=== PATIENT | female | born 1940 | race Caucasian/White ===

== ENCOUNTER → 2016-09-12 | Outpatient (CLI) | payer MEDICARE ==
--- NOTE | 2016-09-12 17:59 | US ---
EXAMINATION TYPE: US carotid duplex BILAT DATE OF EXAM: 09/12/2016 4:31 PM COMPARISON: NONE CLINICAL HISTORY: R09.89 Other specified symptoms and signs involvin. Baseline EXAM MEASUREMENTS: RIGHT: Peak Systolic Velocity (PSV) cm/sec ----- Right CCA: 75.6 ----- Right ICA: 72.1 ----- Right ECA: 168.7 ICA/CCA ratio: 1.0 RIGHT: End Diastole cm/sec ----- Right CCA: 18.8 ----- Right ICA: 21.5 ----- Right ECA: 18.9 LEFT: Peak Systolic Velocity (PSV) cm/sec ----- Left CCA: 85.3 ----- Left ICA: 138.7 ----- Left ECA: 81.7 ICA/CCA ratio: 1.6 LEFT: End Diastole cm/sec ----- Left CCA: 20.4 ----- Left ICA: 40.2 ----- Left ECA: 13.6 VERTEBRALS (direction of flow): Right Vertebral: Antegrade Left Vertebral: Antegrade Elevated right ECA and left proximal ICA. Left proximal ICA appears tortuous. No significant stenos is. Plaque seen in right bulb. Slight bilateral wall thickening. IMPRESSION: There is slight elevated velocity in the left internal carotid artery suggestive of 50-7 0% stenosis. There is antegrade flow in the vertebral arteries. Elevated right external carotid arter y velocity corresponds to 70% stenosis. Criteria for Assigning % of Stenosis / Diameter reduction (Estimation based on the indirect measurements of the internal carotid artery velocities (ICA PSV). 1. Normal (no stenosis)=ICA PSV < 125 cm/s: ratio < 2.0: ICA EDV<40 cm/s. 2. Less than 50% stenosis=ICA PSV < 125 cm/s: ratio < 2.0: ICA EDV<40 cm/s. 3. 50 to 69% stenosis=ICA PSV of 125 to 230 cm/s: ration 2.0 ? 4.0: ICA EDV 40-100 cm/s. 4. Greater than 70% stenosis to near occlusion= ICA PSV > 230 cm/s: ratio > 4.0: ICA EDV > 100 cm/s. 5. Near occlusion= ICA PSV velocities may be low or undetectable: variable ratio and ICA EDV. 6. Total occlusion=unable to detect flow.
== END | disposition home or self-care (01) ==
LOC: RADUSWWP 15:44
PROVIDERS: ATTEND Family Medicine
DX: I65.22 Occlusion and stenosis of left carotid artery (principal)
CPT/HCPCS: 93880

== ENCOUNTER → 2019-01-04 | Outpatient (CLI) | payer MEDICARE ==
--- NOTE | 2019-01-05 11:52 | MM ---
Reason for exam: screening (asymptomatic). Last mammogram was performed 2 years and 9 months ago. History: Patient is postmenopausal and is nulliparous. Took hormonal contraceptives for 1 year beginning at age 36. Physical Findings: A clinical breast exam by your physician is recommended on an annual basis and results should be correlated with mammographic findings. MG 3D Screening Mammo W/Cad Bilateral CC and MLO view(s) were taken. Prior study comparison: April 04, 2016, bilateral MG 3d screening mammo w/cad. April 03, 2015, bilateral MG screening mammo w CAD. There are scattered fibroglandular densities. There are benign appearing round calcifications bilaterally, greater in the left breast. There is chronic nodularity bilaterally. There is no discrete abnormality. ASSESSMENT: Benign, BI-RAD 2 RECOMMENDATION: Routine screening mammogram of both breasts in 1 year.
== END | disposition home or self-care (01) ==
LOC: RADMAMWWP 10:37
PROVIDERS: ATTEND Family Medicine
DX: Z12.31 Encounter for screening mammogram for malignant neoplasm of breast (principal)
CPT/HCPCS: 77063; 77067

== ENCOUNTER → 2019-04-27 | Outpatient (CLI) | payer MEDICARE ==
--- NOTE | 2019-04-27 16:06 | US ---
EXAMINATION TYPE: US thyroid st tissue head/neck DATE OF EXAM: 04/27/2019 COMPARISON: NONE CLINICAL HISTORY: E04.1 Nontoxic single thyroid nodule. GLAND SIZE: Right Lobe: 4.4 x 1.2 x 1.3 cm Overall Parenchyma: heterogenous Left Lobe: 4.3 x 1.2 x 1.3 cm Overall Parenchyma: heterogeneous Isthmus Thickness: 0.3 cm NODULES- Innumerable subcentimeter nodules visualized bilaterally. Largest measuring: RIGHT: # of nodules measured on right: 2 1. 0.7 X 0.5 x 0.8 cm hypoechoic mixed nodule at the upper pole with well-defined margins; . This nodule is wider than tall and shows intranodular vascularity. Prior size: No previous 2. 0.9 X 0.6 x 0.9 cm hypoechoic solid nodule at the lower pole with well-defined margins; . This n odule is wider than tall and shows intranodular vascularity. Prior size: No previous LEFT: # of nodules measured on left: 2 1. 0.5 X 0.4 x 0.5 cm hypoechoic mixed nodule at the upper pole with well-defined margins; . This nodule is wider than tall and shows no intranodular vascularity. Prior size: No previous 2. 0.7 X 0.3 x 0.6 cm hypoechoic cystic nodule at the lower pole with well-defined margins; . This nodule is wider than tall and shows no intranodular vascularity. Prior size: No previous ISTHMUS: # of nodules measured in the isthmus: 0 Bilateral neck scanned, no evidence of lymphadenopathy. IMPRESSION: Multinodular goiter. Multiple subcentimeter thyroid nodules. Surveillance ultrasound is r ecommended in 12 months.
== END | disposition home or self-care (01) ==
LOC: RADUSWWP 15:11
PROVIDERS: ATTEND Family Medicine
DX: E04.2 Nontoxic multinodular goiter (principal)
CPT/HCPCS: 76536

== ENCOUNTER → 2020-08-08 | Outpatient (CLI) | payer MEDICARE ==
[2020-08-08 22:53] LABS: Hemoglobin A1C 5.7 % (4.0-6.0)
[2020-08-09 20:12] LABS: Chol/HDL Ratio 3.46; LDL Cholesterol,Calculated 106.2 mg/dL (0.0-131.0); VLDL Calculation 38.8 mg/dL (5.00-40.00)
== END | disposition home or self-care (01) ==
LOC: LABWHC1 08:39
PROVIDERS: ATTEND Orthopaedic Surgery
DX: Z01.812 Encounter for preprocedural laboratory examination (principal); Z01.818 Encounter for other preprocedural examination; E78.2 Mixed hyperlipidemia; I10 Essential (primary) hypertension
CPT/HCPCS: 36415; 80061; 82550; 83036

== ENCOUNTER → 2020-08-08 | Outpatient (CLI) | payer MEDICARE ==
[2020-08-08 10:59] LABS: HCT 39.5 % (34.0-46.0); HGB 13.7 gm/dL (11.4-16.0); MCH 29.9 pg (25.0-35.0); MCHC 34.6 g/dL (31.0-37.0); MCV 86.4 fL (80.0-100.0); Mean Platelet Volume 7.7; Platelet Count 275 k/uL (150-450); RBC 4.57 m/uL (3.80-5.40); RDW 12.9 % (11.5-15.5); WBC 7.3 k/uL (3.8-10.6)
[2020-08-08 11:08] LABS: Albumin 4.3 g/dL (3.5-5.0); Calcium 9.9 mg/dL (8.4-10.2); Potassium 4.5 mmol/L (3.5-5.1); Total Bilirubin 0.6 mg/dL (0.2-1.3); Total Protein 7.3 g/dL (6.3-8.2)
[2020-08-08 11:23] LABS: INR 0.9 (<1.2); Partial Thromboplastin Time 24.4 sec (22.0-30.0); Prothrombin Time 9.8 sec (9.0-12.0)
[2020-08-08 15:09] LABS: Amorphous Sediment,Urine Occasional /hpf; Appearance,Urine Cloudy (Clear); Bacteria,Urine Moderate /hpf; Bilirubin,Urine Negative (Negative); Blood,Urine Negative (Negative); Color,Urine Yellow; Glucose,Urine (UA) Negative (Negative); Hyaline Casts,Urine 3 /lpf (0-2); Ketones,Urine Negative (Negative); Leukocyte Esterase,Urine Moderate (Negative); Mucus,Urine Few /hpf; Nitrite,Urine Positive (Negative); Protein,Urine Negative (Negative); RBC,Urine 1 /hpf (0-5); Specific Gravity,Urine 1.024 (1.001-1.035); Squamous Epithelial Cell,Urine 1 /hpf (0-4); Urobilinogen,Urine <2.0 mg/dL (<2.0); WBC,Urine 13 /hpf (0-5)
== END | disposition home or self-care (01) ==
LOC: LABPAT 09:49
PROVIDERS: ATTEND Orthopaedic Surgery
DX: Z01.812 Encounter for preprocedural laboratory examination (principal); Z01.818 Encounter for other preprocedural examination; Z79.01 Long term (current) use of anticoagulants
CPT/HCPCS: 36415; 80053; 80061; 81001; 82550; 83036; 85027; 85610; 85730; 87070

== ENCOUNTER 2020-08-22 05:33 | Day surgery (SDC) | payer MEDICARE ==
[2020-08-17 16:17] VITALS: BMI 30.5
[~2020-08-22 05:33] MED LIST: ACETAMINOPHEN TAB 500 MG TAB PO PRN; GABAPENTIN 300 MG CAP PO PRN; MELOXICAM 7.5 MG TAB PO PRN; TRANEXAMIC ACID 1,000 MG in SODIUM CHLORIDE 0.9% 100 ML IVPB PRN
[2020-08-22] MEDS ORDERED: DEXAMETHASONE SOD PHOSPHATE 4 MG/ML 1 ML VIAL IV ONE (05:36)
[2020-08-22] MEDS ORDERED: ONDANSETRON 4 MG/2 ML VIAL IVP ONE (05:36)
[2020-08-22] MEDS ORDERED: MIDAZOLAM 2 MG/2 ML VIAL IV PRN (05:36)
[2020-08-22] MEDS ORDERED: LACTATED RINGERS 1,000 ML IV SCH (05:36)
[2020-08-22 06:02] VITALS: RESP 16
[2020-08-22] MEDS ORDERED: LIDOCAINE 1% (10MG/ML) FOR IV START INTRADERMA ONE (06:19)
[2020-08-22] MEDS ORDERED: TRANEXAMIC ACID 1,000 MG/10 ML VIAL ONE (06:58)
[2020-08-22] MEDS ORDERED: ROPIVACAINE 5 MG/ML 30 ML VIAL ONE (06:58)
[2020-08-22] MEDS ORDERED: ePHEDrine SULFATE/0.9% NACL/PF 50 MG/5 ML SYRINGE IV ONE (06:58)
[2020-08-22] MEDS ORDERED: MIDAZOLAM 2 MG/2 ML VIAL ONE (06:58)
[2020-08-22] MEDS ORDERED: fentaNYL (PF) 50 MCG/ML 2 ML AMP ONE (06:58)
[2020-08-22] MEDS ORDERED: SODIUM CHLORIDE 0.9% 100 ML BAG ONE (06:58)
[2020-08-22] MEDS ORDERED: SUCCINYLCHOLINE CHLORIDE 100 MG/5 ML SYR IV ONE (06:58)
[2020-08-22] MEDS ORDERED: LIDOCAINE 1% INJ 10MG/ML (20 ML MDV) ONE (06:58)
[2020-08-22] MEDS ORDERED: PROPOFOL 10 MG/ML 20 ML VIAL IV ONE (06:58)
[2020-08-22] MEDS ORDERED: fentaNYL (PF) 50 MCG/ML 2 ML AMP IV PRN (07:00)
[2020-08-22] MEDS ORDERED: ONDANSETRON 4 MG/2 ML VIAL IVP PRN (07:04)
[2020-08-22] MEDS ORDERED: NALOXONE 0.4 MG/ML 1 ML VIAL IV PRN (07:04)
[2020-08-22] MEDS ORDERED: HYDROmorphone 0.2 MG/1 ML SYRINGE IVP PRN (07:04)
[2020-08-22] MEDS ORDERED: HYDROmorphone 0.5 MG/0.5 ML SYRINGE IVP PRN ×2 (07:04)
[2020-08-22] MEDS ORDERED: HYDROcodone/APAP 7.5-325MG 1 EACH TAB PO PRN ×2 (07:05)
[2020-08-22] MEDS ORDERED: SODIUM CHLORIDE 0.9% 1,000 ML IV SCH (07:15)
[2020-08-22] MEDS: ROPIVACAINE/EPI/CLONIDINE/KET 50 ML SYRINGE MISCELLANE PRN ×2 (07:31→08:15)
[2020-08-22] MEDS ORDERED: ceFAZolin 3,000 MG in SODIUM CHLORIDE 0.9% IRRIGATIO 3,000 ML IRRIGATION ONE (07:33)
--- NOTE | 2020-08-22 08:10 | P.ANPRN ---
Procedure Note - Anesthesia - Nerve Block Performed Right Adductor Canal Infusion Time Out Performed: Yes Date of Procedure: 08/22/20 Procedure Start Time: 06:35 Procedure Stop Time: 06:54 Location of Patient: PreOp Indication: Acute Post-Operative Pain, Requested by Surgeon Sedation Type: Sedate with meaningful contact maintained Preparation: Sterile Prep, Sterile Dressing Position: Supine Catheter: Indwelling Needle Types: Pajunk Needle Gauge: 21 Ultrasound used to visualize needle placement: Yes Ultrasound used to observe medication spread: Yes Blood Aspirated: No Pain Paresthesia on Injection Noted: No Resistance on Injection: Normal Image Stored and Saved: Yes Events: Uneventful and Well Tolerated (ropi .5% 20cc plus dexamethasone 4mg)
[2020-08-22] MEDS ORDERED: ROPIVACAINE 0.2%-NS ON-Q PUMP 1,090 MG, EMPTY PAIN BALL 1 EACH MISCELLANE PRN (08:12)
--- NOTE | 2020-08-22 08:12 | P.ANPRN ---
Procedure Note - Anesthesia - Nerve Block Performed Right Austinck Single Time Out Performed: Yes Date of Procedure: 08/22/20 Procedure Start Time: 06:55 Procedure Stop Time: 06:59 Location of Patient: PreOp Indication: Acute Post-Operative Pain, Requested by Surgeon Sedation Type: Sedate with meaningful contact maintained Preparation: Sterile Prep Position: Supine Needle Types: Pajunk Needle Gauge: 21 Ultrasound used to visualize needle placement: Yes Ultrasound used to observe medication spread: Yes Blood Aspirated: No Pain Paresthesia on Injection Noted: No Resistance on Injection: Normal Image Stored and Saved: Yes Events: Uneventful and Well Tolerated (ropi .5% 20cc)
--- NOTE | 2020-08-22 08:32 | P.OP ---
Date of Procedure: 08/22/20 Preoperative Diagnosis: Severe osteoarthritis right knee Postoperative Diagnosis: Severe osteoarthritis right knee Procedure(s) Performed: Right total knee arthroplasty Implants: [employer] Journey II CR Oxinium cruciate retaining femoral component size 4, right [employer] Journey nonporous tibial baseplate size 3, right [employer] Journey II, XLPE Deep Dished articular insert, size 11 mm, Size 3-4, right [employer] Journey Merary II resurfacing patellar component, oval, 32 mm All components were cemented using Palacos R bone cement The articulation is Oxinium on polyethylene Anesthesia: JUAN A Surgeon: Sam Kwan Direct Care Specialist #1: Aleisha Orr Estimated Blood Loss (ml): 50 Pathology: other (Bone and cartilage) Condition: stable Disposition: PACU Indications for Procedure: After failure of conservative treatment we discussed the surgical and nonsurgical treatment options at length. Patient wishes to proceed with a total knee arthroplasty. Complications specific to this procedure were discussed at length, including but not limited to infection, bleeding, stiffness, and nerve injury. Covid-19 was also discussed at length with the patient, and they are aware of the current policies and procedures. The patient was given the option of delaying surgery, but they elect to proceed knowing these risks. Patient is aware of all these complications and informed consent was obtained Operative Findings: The operative findings are consistent with severe osteoarthritis of the right knee Description of Procedure: Patient was seen in the preoperative area and the consent was reviewed and the operative site was marked with a skin marker. The patient verified the procedure and the operative site. An adductor canal pain catheter was placed by anesthesia in the preoperative area, as well as an Ipack block. The patient was then brought to the operating room and given preoperative antibiotics intravenously. A gram of transexamic acid was given intravenously. A general anesthetic was administered by the anesthesia department. A tourniquet was placed on the upper thigh and the lower extremity was prepped with chlorhexidine and draped in usual sterile fashion. A universal timeout was then performed which confirmed the patient's name, surgical site, ALLERGIES, and consent. The lower extremity was then exsanguinated and tourniquet was inflated to 250 mmHg. A standard anterior midline approach to the knee was performed. The skin and subcutaneous tissue were sharply dissected down to the patellar tendon. A medial parapatellar arthrotomy was then performed. The knee was then extended, the patellar was everted, and the knee was again flexed. The infra-patellar fat pad was removed in order to enhance exposure. The anterior horns of both menisci were excised, and a release was performed to the posterior medial aspect of the knee. On gross visual inspection, there was complete loss of articular cartilage in the medial and patellofemoral joint spaces. There was also significant cartilage damage in the lateral compartment. There were multiple periarticular osteophytes globally about the knee which were then removed with a Ronguer. The femoral canal was then opened with the 9.5 mm intramedullary drill. The 8 mm intramedullary magaly was then inserted into the femoral canal with the distal femoral cutting guide set for 5 of valgus. The distal femoral cutting block was then pinned in place. The intramedullary magaly was then removed, and the distal femur was then cut. The cutting block was then removed and the cut was checked for symmetry. The resected bone was then measured to confirm the appropriate distal femoral resection. Next, the sizing guide was then placed and set for 3 external rotation based off of the epicondylar axis and Whitesides line. Pins were then placed and the drill holes, and the femur was sized with the sizing stylus. The pins were then removed, and the sizing guide was then removed. The spikes of the femoral block was then placed into the predrilled holes, and malleted into place. Two 45 mm pins were then placed into the fixation holes on the cutting block. An jayleen wing was then used to ensure there would be no notching with the anterior cut. The anterior condyles were cut without notching. The anterior chord cut was then performed, followed by the posterior cut, posterior chamfer cut, and the anterior chamfer cut. The collateral ligaments were protected during the entire process. The cutting block was then removed. Any remaining bone and osteophytes were removed from the femur with a Rominger. The femoral canal was plugged with autologous bone. Attention was then directed to the tibia. The remaining ACL was removed with a Ronguer, and the tibia was then gently subluxed forward with a large bent knee retractor. Any remaining menisci were excised. The posterior lateral corner was cauterized in order to coagulate the lateral geniculate artery. The extra medullary tibial cutting guide was then placed, set for the appropriate rotation, slope, and depth of resection. The proximal tibia cutting guide was then pinned in place. Proximal tibia was then cut and sized. The femoral trial was placed. A narrow saw blade was then used to remove the anterior intracondylar femoral bone. The CR notch trial was then placed. The tibial trial was placed with the appropriate-sized insert. The knee was able to fully extend and flex to 130 and was stable throughout all range of motion. The knee was then extended and the patella was everted. Patella was then measured, and then using an osteotomy guide, the patella was cut at the appropriate level. The patella was then measured and drilled and the patella trial was then placed. The knee was then taken through range of motion with the patella trial and the patella tracked normally using the no thumbs technique.. The knee was then extended patella trial was then removed and the patella was everted. Knee was then flexed and lug holes were drilled through the femoral trial and the femoral trial was then removed. The tibial was then re-exposed, and the tibial broach guide was then pinned in place after it was set for the appropriate rotation to allow for the most coverage without overhang. The tibia was then reamed and broached. The cut surfaces of bone were then irrigated with pulsatile lavage. The posterior structures were injected with the ropivacaine solution. The knee was also irrigated with Irrisept solution. The components were then opened, the cement was mixed, and the components were then cemented in place. The cement was allowed to harden with the knee in full extension. While the cement was hardening, the remaining soft tissues were then injected with a ropivacaine solution, which consisted of 246.25 mg of ropivacaine, 0.5 mg of epinephrine, 30 mg of Toradol, 80 g of clonidine, and 48.45 mL of sterile water, for a total of 100 mL of fluid injected. After the cemented hardened. The tourniquet was released, and hemostasis was obtained. A second gram of transexamic acid was given intravenously. The knee was again irrigated. The knee was again taken through range of motion and found to be stable throughout all range of motion of 0-130, and the patella tracked normally. The fascia was then closed with 0 Vicryl followed by #2 strata fix suture. The subcutaneous tissue was closed with 3-0 Vicryl and 3-0 strata fix. Exofin glue was used for the skin and placed with the knee in flexion. After the glue had dried, and Optafoam silver impregnated dressing was applied. The patient was then transferred to recovery room in stable condition. The investigative assistant WILFREDO Meza was required due the complexity surgery and the need for a skilled medical or surgical instrument maker. She assisted in positioning, draping, retraction, and closure of the wound.
[2020-08-22 09:07] VITALS: TEMP 96.8
[2020-08-22] MEDS ORDERED: LACTATED RINGERS 1,000 ML IV ONE (09:55)
--- NOTE | 2020-08-22 10:03 | XR ---
EXAMINATION TYPE: XR knee limited RT DATE OF EXAM: 08/22/2020 CLINICAL HISTORY: Right knee pain and arthritis, status post total knee replacement. TECHNIQUE: Portable AP and crosstable lateral views of the right knee are obtained immediately posto peratively. COMPARISON: None FINDINGS: Metallic hardware from total right knee arthroplasty is seen and appears satisfactory in a lignment and position. No evidence of hardware fracture. There is evidence of recent surgery with di ffuse soft tissue and cutaneous irregularity. No acute osseous fracture. No unexpected radiopaque for eign body. IMPRESSION: METALLIC HARDWARE FROM TOTAL RIGHT KNEE ARTHROPLASTY IS SATISFACTORY IN ALIGNMENT.
[2020-08-22 11:22] VITALS: PULSE 89
[2020-08-22] MEDS ORDERED: Acetaminophen-Codeine 300-30mg TAB PO PRN (12:34)
[2020-08-22] MEDS ORDERED: Acetaminophen-Codeine 300-30mg TAB PO ONE (12:43)
[2020-08-22 12:46] VITALS: BP 132/66
[2020-08-22] MEDS ORDERED: IV FLUID CONTINUATION 1,000 ML IV ONE (13:44)
== END 2020-08-22 14:21 | disposition home health service (06) ==
LOC: OR 05:33
PROVIDERS: ATTEND Orthopaedic Surgery
DX: M17.11 Unilateral primary osteoarthritis, right knee (principal); I10 Essential (primary) hypertension; E78.2 Mixed hyperlipidemia; H91.90 Unspecified hearing loss, unspecified ear; H57.9 Unspecified disorder of eye and adnexa; E78.00 Pure hypercholesterolemia, unspecified; Z90.89 Acquired absence of other organs; Z96.652 Presence of left artificial knee joint; E66.9 Obesity, unspecified; Z68.30 Body mass index [BMI] 30.0-30.9, adult; Z79.82 Long term (current) use of aspirin; Z79.1 Long term (current) use of non-steroidal anti-inflammatories (NSAID); Z79.899 Other long term (current) drug therapy; Z88.5 Allergy status to narcotic agent; Z88.8 Allergy status to other drugs, medicaments and biological substances
CPT/HCPCS: 97110; 97161; 64999; 64448; 76942; 88300; 73560; 27447; C1713; C1776; J2250; J1100; J0690 ×2; J2405; J2001; J3010; J2795; J0330; J2704

== ENCOUNTER 2020-09-15 03:40 | Emergency (ER) | payer MEDICARE ==
[2020-09-15 03:46] VITALS: TEMP 97.7
--- NOTE | 2020-09-15 04:09 | ED ---
Abdominal Pain [facility] - General Chief Complaint: Abdominal Pain Stated Complaint: Abd Pain Time Seen by Provider: 09/15/20 03:50 Source: patient Mode of arrival: wheelchair - History of Present Illness Initial Comments: This patient is a 79-year-old woman who presents to be evaluate for epigastric pains. She states she has been having episodes of pain since Friday afternoon. She had been at physical therapy, and was using an exercise band, when she had the first episode. She states it felt like a tightening in the epigastric area. Since that time she has had multiple episodes, including tonight when she had about a 30 minute episode of the pain. It is sometimes brought on by movement. She has not noted any relieving factors. She has not had any associated symptoms. MD Complaint: abdominal pain Onset/Timin -: days(s) Location: epigastric Radiation: none Migration to: no migration Severity: moderate Quality: cramping Consistency: intermittent Improves With: nothing Worsens With: movement Associated Symptoms: denies other symptoms - Related Data Home Medications Medication Instructions Recorded Confirmed Losartan-Hctz 50-12.5 mg [Hyzaar 1 tab PO QAM 06/14/15 08/22/20 50-12.5] Pravastatin Sodium [Pravachol] 10 mg PO HS 06/14/15 08/22/20 amLODIPine [Norvasc] 5 mg PO HS 06/14/15 08/22/20 Aspirin 81 mg PO DAILY 08/17/20 08/22/20 Calcium Carbonate/Vitamin D3 1 each PO DAILY 08/17/20 08/22/20 [Calcium 600 mg-Vit D3 5 mcg (200 unit)] Cholecalciferol [Vitamin D3 (25 25 mcg PO DAILY 08/17/20 08/22/20 Mcg = 1000 Iu)] Ibuprofen [Motrin] 800 mg PO Q8H PRN 08/17/20 08/22/20 Magnesium 400 mg PO DAILY 08/17/20 08/22/20 Multivit-Min/Iron/Folic/Lutein 1 each PO DAILY 08/17/20 08/22/20 [Centrum Silver Women Tablet] Nitrofurantoin Macrocrystal 100 mg PO BID 08/17/20 08/22/20 [Nitrofurantoin] Ubidecarenone [Co Q-10] 100 mg PO DAILY 08/17/20 08/22/20 Previous Rx's Medication Instructions Recorded Acetaminophen-Codeine 300-30mg 1 tab PO Q4-6H PRN #32 tablet 08/22/20 [Tylenol #3] Aspirin 325 mg PO BID #60 tab 08/22/20 Celecoxib [CeleBREX] 200 mg PO DAILY 5 Days #5 capsule 08/22/20 Ondansetron Odt [Zofran Odt] 1 tab PO Q8HR PRN #10 tab 08/22/20 Sennosides [Senokot] 2 tab PO DAILY PRN #60 tablet 08/22/20 Allergies Allergy/AdvReac Type Severity Reaction Status Date / Time hydrocodone bitartrate AdvReac Hallucinati Verified 09/15/20 03:47 [From Vicodin] ons lisinopril AdvReac Cough Verified 09/15/20 03:47 Review of Systems ROS Statement: Those systems with pertinent positive or pertinent negative responses have been documented in the HPI. ROS Other: All systems not noted in ROS Statement are negative. Constitutional: Denies: fever, chills Respiratory: Denies: cough, dyspnea Cardiovascular: Denies: chest pain, palpitations, orthopnea, edema Gastrointestinal: Reports: as per HPI, abdominal pain. Denies: nausea, vomiting, diarrhea, constipation Genitourinary: Denies: dysuria, hematuria Musculoskeletal: Denies: back pain Skin: Denies: rash Neurological: Denies: headache, weakness, numbness Past Medical History Past Medical History: Hyperlipidemia, Hypertension, Osteoarthritis (OA) History of Any Multi-Drug Resistant Organisms: None Reported Past Surgical History: Appendectomy, Tonsillectomy Additional Past Surgical History / Comment(s): cataract surg.06-20-15 TOTAL LT KNEE REPLACMENT. right knee replacment august 22 Past Anesthesia/Blood Transfusion Reactions: No Reported Reaction Past Psychological History: Anxiety Smoking Status: Never smoker Past Alcohol Use History: None Reported Past Drug Use History: None Reported - Past Family History Mother Family Medical History: CVA/TIA Father Family Medical History: CVA/TIA General Exam General appearance: alert, in no apparent distress Head exam: Present: atraumatic, normocephalic Eye exam: Present: normal appearance. Absent: scleral icterus, conjunctival injection ENT exam: Present: normal oropharynx Neck exam: Present: normal inspection Respiratory exam: Present: normal lung sounds bilaterally. Absent: respiratory distress, wheezes, rales, rhonchi, stridor Cardiovascular Exam: Present: regular rate, normal rhythm, normal heart sounds. Absent: systolic murmur, diastolic murmur, rubs, gallop GI/Abdominal exam: Present: soft. Absent: distended, tenderness, guarding, rebound, rigid, mass, pulsatile mass Extremities exam: Present: normal inspection, normal capillary refill. Absent: pedal edema, calf tenderness Back exam: Present: normal inspection. Absent: CVA tenderness (R), CVA tenderness (L) Neurological exam: Present: alert Skin exam: Present: warm, dry, intact, normal color. Absent: rash Course Vital Signs 09/15/20 03:41 Temperature 97.7 F Pulse Rate 89 Respiratory 18 Rate Blood Pressure 160/80 O2 Sat by Pulse 99 Oximetry Medical Decision Making - Lab Data Result diagrams: 09/15/20 04:29 09/15/20 04:29 Lab Results 09/15/20 09/15/20 09/15/20 Range/Units 04:29 04:29 04:29 WBC 7.6 (3.8-10.6) k/uL RBC 4.11 (3.80-5.40) m/uL Hgb 12.0 (11.4-16.0) gm/dL Hct 35.4 (34.0-46.0) % MCV 86.2 (80.0-100.0) fL MCH 29.1 (25.0-35.0) pg MCHC 33.8 (31.0-37.0) g/dL RDW 13.6 (11.5-15.5) % Plt Count 339 (150-450) k/uL MPV 7.3 Neutrophils % 58 % Lymphocytes % 26 % Monocytes % 7 % Eosinophils % 7 % Basophils % 1 % Neutrophils # 4.4 (1.3-7.7) k/uL Lymphocytes # 2.0 (1.0-4.8) k/uL Monocytes # 0.5 (0-1.0) k/uL Eosinophils # 0.5 (0-0.7) k/uL Basophils # 0.1 (0-0.2) k/uL Sodium 140 (137-145) mmol/L Potassium 3.9 (3.5-5.1) mmol/L Chloride 104 (98-107) mmol/L Carbon Dioxide 29 (22-30) mmol/L Anion Gap 7 mmol/L BUN 34 H (7-17) mg/dL Creatinine 0.75 (0.52-1.04) mg/dL Est GFR (CKD-EPI)AfAm 88 (>60 ml/min/1.73 sqM) Est GFR (CKD-EPI)NonAf 77 (>60 ml/min/1.73 sqM) Glucose 103 H (74-99) mg/dL Calcium 9.6 (8.4-10.2) mg/dL Total Bilirubin 0.2 (0.2-1.3) mg/dL AST 20 (14-36) U/L ALT 12 (4-34) U/L Alkaline Phosphatase 94 (38-126) U/L Troponin I <0.012 (0.000-0.034) ng/mL Total Protein 6.6 (6.3-8.2) g/dL Albumin 3.9 (3.5-5.0) g/dL Amylase 70 (30-110) U/L Lipase 128 (23-300) U/L - EKG Data -: EKG Interpreted by [place] EKG shows normal: sinus rhythm, axis (Normal), intervals (Normal), QRS complexes (Normal), ST-T waves (Normal) Rate: normal (Rate 74 bpm) Interpretation: normal EKG Disposition Clinical Impression: Abdominal wall strain Disposition: HOME SELF-CARE Condition: Good Instructions (If sedation given, give patient instructions): Muscle Strain (ED) Is patient prescribed a controlled substance at d/c from ED?: No Referrals: Cholo Romeo MD [Primary Care Provider] - 1-2 days
[2020-09-15 04:38] LABS: Basophils # (A) 0.1 k/uL (0-0.2); Basophils % (A) 1 %; Eosinophils # (A) 0.5 k/uL (0-0.7); Eosinophils % (A) 7 %; HCT 35.4 % (34.0-46.0); Lymphocytes % (A) 26 %; MCH 29.1 pg (25.0-35.0); MCHC 33.8 g/dL (31.0-37.0); MCV 86.2 fL (80.0-100.0); Mean Platelet Volume 7.3; Monocytes # (A) 0.5 k/uL (0-1.0); Monocytes % (A) 7 %; Neutrophils # (A) 4.4 k/uL (1.3-7.7); Neutrophils % (A) 58 %; Platelet Count 339 k/uL (150-450); RBC 4.11 m/uL (3.80-5.40); RDW 13.6 % (11.5-15.5); WBC 7.6 k/uL (3.8-10.6)
[2020-09-15 05:01] LABS: Albumin 3.9 g/dL (3.5-5.0); Calcium 9.6 mg/dL (8.4-10.2); Potassium 3.9 mmol/L (3.5-5.1); Total Bilirubin 0.2 mg/dL (0.2-1.3); Total Protein 6.6 g/dL (6.3-8.2)
--- NOTE | 2020-09-15 05:11 | XR ---
EXAM: XR Chest, 1 View CLINICAL HISTORY: ITS.REASON XR Reason: epigastric pain TECHNIQUE: Frontal view of the chest. COMPARISON: No relevant prior studies available. FINDINGS: Lungs: Unremarkable. Pleural space: Unremarkable. Heart: Unremarkable. Mediastinum: Unremarkable. Bones/joints: Unremarkable. IMPRESSION: Normal chest x-ray.
[2020-09-15 06:39] VITALS: BP 144/75; PULSE 78; RESP 16
== END 2020-09-15 06:39 | disposition home or self-care (01) ==
LOC: EC 03:40
DX: S39.011A Strain of muscle, fascia and tendon of abdomen, initial encounter (principal); E78.5 Hyperlipidemia, unspecified; I10 Essential (primary) hypertension; M19.90 Unspecified osteoarthritis, unspecified site; F41.9 Anxiety disorder, unspecified; Z79.82 Long term (current) use of aspirin; Z79.1 Long term (current) use of non-steroidal anti-inflammatories (NSAID); X58.XXXA Exposure to other specified factors, initial encounter
CPT/HCPCS: 36415; 71045; 80053; 82150; 83690; 84484; 85025; 93005; 99284

== ENCOUNTER → 2021-02-08 | Outpatient (CLI) | payer MEDICARE ==
--- NOTE | 2021-02-12 10:59 | MM ---
Reason for exam: screening (asymptomatic). Last mammogram was performed 2 years and 1 month ago. History: Patient is postmenopausal and is nulliparous. Took hormonal contraceptives for 1 year beginning at age 36. Physical Findings: A clinical breast exam by your physician is recommended on an annual basis and results should be correlated with mammographic findings. MG 3D Screening Mammo W/Cad Bilateral CC and MLO view(s) were taken. Prior study comparison: January 04, 2019, bilateral MG 3d screening mammo w/cad. April 04, 2016, bilateral MG 3d screening mammo w/cad. April 03, 2015, bilateral MG screening mammo w CAD. There are scattered fibroglandular densities. There is chronic nodularity bilaterally. No significant changes when compared with prior studies. ASSESSMENT: Benign, BI-RAD 2 RECOMMENDATION: Routine screening mammogram of both breasts in 1 year.
== END | disposition home or self-care (01) ==
LOC: RADMAMWWP 10:50
PROVIDERS: ATTEND Family Medicine
DX: Z12.31 Encounter for screening mammogram for malignant neoplasm of breast (principal); Z78.0 Asymptomatic menopausal state
CPT/HCPCS: 77063; 77067

== ENCOUNTER → 2023-07-01 | Outpatient (CLI) | payer MEDICARE ==
--- NOTE | 2023-07-04 18:43 | CT ---
EXAMINATION TYPE: CT shoulder LT wo con CT DLP: 498.4 mGycm, Automated exposure control for dose reduction was used. DATE OF EXAM: 07/01/2023 1:08 PM COMPARISON: None CLINICAL INDICATION:Female, 82 years old with history of Left shoulder; R22.32 LOCALIZED SWELLING, MA SS AND; PHH, left shoulder pain, no injury TECHNIQUE: Axial images were obtained of the CT shoulder LT wo con, Additional coronal and sagittal r eformatted images and soft tissue and bone window were obtained for review. 3-D reconstruction was cr eated on a separate workstation. Contrast used: mL of , (None if empty) Oral contrast used: (None if empty) FINDINGS: End-stage left shoulder osteoarthrosis changes with [id number] articulation. Multiple gary cified joint bodies present. The distal clavicle and acromion demonstrate degeneration with osteophyt e formation. No evidence of fracture. There is erosion of the glenoids with thinning. IMPRESSION: End-stage left shoulder osteoarthritis.
== END | disposition home or self-care (01) ==
LOC: RADCTMAIN 12:19
PROVIDERS: ATTEND Orthopaedic Surgery Hand Surgery
DX: M19.012 Primary osteoarthritis, left shoulder (principal); M19.022 Primary osteoarthritis, left elbow; M25.522 Pain in left elbow; R22.32 Localized swelling, mass and lump, left upper limb

== ENCOUNTER → 2023-08-27 | Outpatient (CLI) | payer MEDICARE ==
[2023-08-27 15:21] LABS: Blood Urea Nitrogen 21.5 mg/dL (9.0-27.0); Carbon Dioxide 27.1 mmol/L (21.6-31.8); Chloride 102 mmol/L (96-109); Potassium 4.3 mmol/L (3.5-5.5); Sodium 141 mmol/L (135-145)
[2023-08-27 16:17] LABS: HCT 43.4 % (37.2-46.3); HGB 14.1 g/dL (12.0-15.0); MCH 29.4 pg (27.0-32.0); MCHC 32.5 g/dL (32.0-37.0); MCV 90.6 FL (80.0-97.0); Mean Platelet Volume 10.9 FL (9.5-12.2); NRBC Per 100 WBC 0 X 10*3/uL (0.00-0.01); Platelet Count 290 X 10*3/uL (140-440); RBC 4.79 X 10*6/uL (4.10-5.20); RDW 14.1 % (11.5-14.5); WBC 6.54 X 10*3/uL (4.50-10.00)
== END | disposition home or self-care (01) ==
LOC: LABPAT 09:00
PROVIDERS: ATTEND Internal Medicine Interventional Cardiology
DX: Z01.812 Encounter for preprocedural laboratory examination (principal); R94.39 Abnormal result of other cardiovascular function study
CPT/HCPCS: 36415; 80051; 82565; 84520; 85027

== ENCOUNTER 2023-08-29 05:42 | Day surgery (SDC) | payer MEDICARE ==
[2023-08-29] MEDS: SODIUM CHLORIDE 0.9% 1,000 ML IV ONE (06:10)
[2023-08-29] MEDS ORDERED: SODIUM CHLORIDE 0.9% 1,000 ML in EMPTY BAG 1 BAG IV SCH (06:12)
[2023-08-29] MEDS ORDERED: HEPARIN SODIUM,PORCINE (1 ML) 2,500 UNIT in SODIUM CHLORIDE 0.9% 250 ML IRRIGATION PRN (06:12)
[2023-08-29] MEDS ORDERED: NITROGLYCERIN SL TABS 0.4 MG TAB SUBLINGUAL PRN (06:12)
[2023-08-29] MEDS ORDERED: HEPARIN SODIUM,PORCINE 10,000 UNIT in SODIUM CHLORIDE 0.9% 1,000 ML IRRIGATION PRN (06:12)
[2023-08-29] MEDS ORDERED: ALPRAZolam 0.25 MG TAB PO PRN (06:12)
[2023-08-29] MEDS: ALPRAZolam 0.5 MG TAB PO PRN (06:32)
[2023-08-29 06:37] LABS: Basophils # (A) 0.1 k/uL (0-0.2); Basophils % (A) 1 %; Eosinophils # (A) 0.5 k/uL (0-0.7); Eosinophils % (A) 7 %; HCT 45.3 % (34.0-46.0); HGB 14.7 gm/dL (11.4-16.0); Lymphocytes # (A) 1.8 k/uL (1.0-4.8); Lymphocytes % (A) 26 %; MCHC 32.4 g/dL (31.0-37.0); MCV 89.4 fL (80.0-100.0); Mean Platelet Volume 7.7; Monocytes # (A) 0.6 k/uL (0-1.0); Monocytes % (A) 8 %; Neutrophils # (A) 3.8 k/uL (1.3-7.7); Neutrophils % (A) 54 %; Platelet Count 276 k/uL (150-450); RBC 5.07 m/uL (3.80-5.40); RDW 13.6 % (11.5-15.5)
[2023-08-29 06:47] LABS: African American GFR (CKD) 89 (>60 ml/min/1.73 sqM); Anion Gap 7 mmol/L; Blood Urea Nitrogen 31 mg/dL (7-17); Calcium 9.6 mg/dL (8.4-10.2); Carbon Dioxide 25 mmol/L (22-30); Chloride 107 mmol/L (98-107); Glucose 106 mg/dL (74-99); Non-African American GFR(CKD) 77 (>60 ml/min/1.73 sqM); Potassium 4.3 mmol/L (3.5-5.1); Sodium 139 mmol/L (137-145)
[2023-08-29] MEDS ORDERED: ASPIRIN 325 MG TAB PO ONE (07:00)
[2023-08-29] MEDS ORDERED: fentaNYL (PF) 50 MCG/ML 2 ML AMP ONE (07:29)
[2023-08-29] MEDS ORDERED: VERAPAMIL 2.5 MG/ML 2 ML AMP ONE (07:34)
[2023-08-29] MEDS ORDERED: LIDOCAINE 1% INJ 10MG/ML (20 ML MDV) ONE (07:34)
[2023-08-29] MEDS: fentaNYL (PF) 50 MCG/ML 2 ML AMP IVP ONE (07:40)
[2023-08-29] MEDS: LIDOCAINE 1% INJ 10MG/ML (20 ML MDV) SQ ONE (07:42)
[2023-08-29] MEDS: VERAPAMIL SYRINGE (5 MG/10 ML) INTRAARTER ONE (07:45)
[2023-08-29] MEDS ORDERED: HEPARIN SODIUM 1,000 UN/ML (10ML VL) ONE (07:45)
[2023-08-29] MEDS: HEPARIN SODIUM 1,000 UN/ML (10ML VL) IVP ONE (07:49)
[2023-08-29] MEDS: IOPAMIDOL-370 100ML BTL INJ ONE (07:54)
[2023-08-29] MEDS ORDERED: RX INFO: IV CONTRAST WAS GIVEN 1 EACH MISC MISCELLANE PRN (08:06)
--- NOTE | 2023-08-29 08:10 | P.CARDCATH ---
Date of Procedure: 08/29/23 Description of Procedure: Cardiac Catheterization: The patient is an 82-year-old female with known history of hypertension and hyperlipidemia who has been complaining of symptoms of dyspnea on exertion and had an abnormal MPI. Recommendations were made regarding cardiac catheterization, the risks and the complications were discussed with the patient who is in full understanding and agreement. Procedure Description: Patient was brought to metallurgical laboratory assistant in fasting semi-sedated state after receiving Fentanyl and Benadryl achieiving moderate conscious sedated state. Using Xylocaine Anesthesia and modified Seldinger technique, a 6-Tamazight sheath was introduced in the right radial artery . Subsequently, selective coronary angiography was performed using a 5-Tamazight 3.5 bend Quintin catheter. Multiple views of the coronary artery including hemiaxial views were obtained. The right Quintin catheter was used to cross the aortic valve and LVEDP was calculated. Following that, catheter and sheath were removed. Hemostasis was obtained with deployment of vascular band . There was no immediate complication. Patient was returned to room in stable condition. Of note, the patient received a total of 4500 units of intravenous heparin as well as intra-arterial verapamil. Findings: Left main: This is a large size vessel, bifurcating into LAD and left circumflex, left main has no obstructive disease LAD: This is a large size vessel, reaching to the apex, giving rise to 2 diagonal branch, the LAD and its branches have no obstructive disease Left circumflex: This is a large dominant vessel bifurcating distally to PDA and PLV, the left circumflex and its branches have no evidence of significant obstructive disease RCA: This is a small nondominant vessel that has no evidence of obstructive disease Left Ventriculogram: Not performed Hemodynamics: There was no gradient across the aortic valve, LVEDP was 10-12 mmHg Conclusion: 1. No evidence of obstructive coronary disease 2. Left dominance 3. Normal left ventricle end-diastolic pressure Recommendations: The patient will continue present medical regimen with increasing her physical activity. The findings and the recommendations were discussed with the patient and the family and they were in full understanding and agreement. Duration of sedation is 14 minutes.
[2023-08-29] MEDS ORDERED: SODIUM CHLORIDE 0.9% 1,000 ML IV SCH (08:15)
[2023-08-29 12:14] VITALS: RESP 16
[2023-08-29 17:53] VITALS: BP 151/73; PULSE 75
[2023-08-29] MEDS ORDERED: amLODIPine 5 MG TAB PO SCH (21:00)
[2023-08-29] MEDS ORDERED: PRAVASTATIN SODIUM 20 MG TAB PO SCH (21:00)
[2023-08-30] MEDS ORDERED: LOSARTAN-HCTZ 50-12.5 MG 1 EACH TAB PO SCH (09:00)
== END 2023-08-29 11:55 | disposition home or self-care (01) ==
LOC: CATHCVL 05:42
PROVIDERS: ATTEND Internal Medicine Interventional Cardiology
DX: I35.1 Nonrheumatic aortic (valve) insufficiency (principal); I10 Essential (primary) hypertension; E78.2 Mixed hyperlipidemia; Z79.899 Other long term (current) drug therapy
CPT/HCPCS: 93458; 80048; 85025; C1769 ×2; C1894; J2001; J3010; J1644; Q9967

== ENCOUNTER → 2023-11-19 | Outpatient (CLI) | payer MEDICARE ==
--- NOTE | 2023-11-19 12:26 | US ---
EXAMINATION TYPE: US venous doppler duplex LE RT DATE OF EXAM: 11/19/2023 12:09 PM COMPARISON: NONE CLINICAL INDICATION: Female, 82 years old with history of I80.9 PHLEBITIS AND THROMBOPHLEBITIS; Pain and swelling, no hx of DVT. SIDE PERFORMED: Right TECHNIQUE: The lower extremity deep venous system is examined utilizing real time linear array sonog russ with graded compression, doppler sonography and color-flow sonography. VESSELS IMAGED: Common Femoral Vein Deep Femoral Vein Greater Saphenous Vein * Femoral Vein Popliteal Vein Small Saphenous Vein * Proximal Calf Veins (* superficial vessels) Right Leg: No evidence of DVT. Right calf edema noted. Slightly limited visibility of prox calf vei ns due to edema. IMPRESSION: No evidence for deep vein thrombosis. Right lower extremity subcutaneous edema.
== END | disposition home or self-care (01) ==
LOC: RADUSWWP 11:30
PROVIDERS: ATTEND Orthopaedic Surgery
DX: I80.9 Phlebitis and thrombophlebitis of unspecified site (principal); M25.562 Pain in left knee; E78.00 Pure hypercholesterolemia, unspecified; Z74.1 Need for assistance with personal care; Z96.651 Presence of right artificial knee joint; R60.0 Localized edema